=== PATIENT | female | born 1955 | race African-American/Black ===

== ENCOUNTER 2020-04-03 20:49 | Emergency (ER) | payer OTHER ==
[~2020-04-03] VITALS: Ht 165.1 cm; Wt 104.3 kg
[2020-04-03 21:06] VITALS: Ht 165.1 cm; Wt 104.3 kg
[2020-04-03 23:26] LABS: BASOPHIL % 0.7 % (0-2)
[2020-04-03 23:28] LABS: PLATELET COUNT 438 x10^3mcL (130-400); RED CELL DISTRIBUTION WIDTH 19.8 % (11.5-14.5)
[2020-04-03 23:45] LABS: microscopic required? NO
[2020-04-03 23:49] LABS: UA SPECIFIC GRAVITY <=1.005 (1.005-1.035); urine erythrocyte NEGATIVE (NEGATIVE)
[2020-04-04] LABS: AMPHETAMINE QUAL UR NONE DETECTED (See below)
[2020-04-04] LABS: CALCIUM 9.6 mg/dL (8.5-10.1); CARBON DIOXIDE 26.2 mmol/L (21-32); POTASSIUM SERUM 3.7 mmol/L (3.5-5.1)
[2020-04-04 00:13] LABS: ALBUMIN 3.9 g/dL (3.4-5.0); BILIRUBIN TOTAL 0.4 mg/dL (0.20-1.00); TOTAL PROTEIN, SERUM 9.1 g/dL (6.4-8.2)
[2020-04-04 01:07] VITALS: BP 134/78
== END 2020-04-04 01:00 | disposition home or self-care (01) ==
LOC: ED 20:49
PROVIDERS: Emergency Medicine
DX: M54.5 Low back pain (principal); I10 Essential (primary) hypertension; Z88.2 Allergy status to sulfonamides; Z88.6 Allergy status to analgesic agent; Z88.0 Allergy status to penicillin
CPT/HCPCS: G0480